=== PATIENT | female | born 1980 | race Caucasian/White ===

== ENCOUNTER → 2020-05-28 09:42 | Outpatient (CLI) | payer OTHER, SELFPAY ==
--- NOTE | ~2020-05-28 | MR_ITS ---
EXAMINATION: MR lumbar spine wo con EXAM DATE: 05/28/2020 10:27 INDICATION: Low back pain low back pain . TECHNIQUE: Multi-sequential, multiplanar MR images of the lumbar spine were obtained without contrast . Sagittal T1, T2, T2 fat saturation images. Axial T2 weighted images. There is no prior study for comparison. FINDINGS: The conus medullaris terminates at the L1/2 level and has normal signal intensity and morph ology. Moderate disc disease at L5-S1 with 3 mm retrolisthesis. The vertebral bodies are otherwise a ligned. The vertebral body and disc heights are otherwise well maintained. There are scattered focal signal abnormalities consistent with hemangiomata, otherwise without focal suspicious marrow signal a bnormalities. Paraspinal soft tissue is unremarkable. Level by level evaluation: T12-L1: Disc does not extend beyond the endplate margin. Facet arthropathy: Mild bilateral. Neural foraminal stenosis: No stenosis. Central canal stenosis: No stenosis. L1-L2: Disc does not extend beyond the endplate margin. Facet arthropathy: Mild bilateral. Neural foraminal stenosis: No stenosis. Central canal stenosis: No stenosis. L2-L3: Disc does not extend beyond the endplate margin. Facet arthropathy: Mild bilateral. Neural foraminal stenosis: No stenosis. Central canal stenosis: No stenosis. L3-L4: Disc does not extend beyond the endplate margin. Facet arthropathy: Mild bilateral. Neural foraminal stenosis: No stenosis. Central canal stenosis: No stenosis. L4-L5: There is a minimal diffuse disc bulge. Facet arthropathy: Mild bilateral. Neural foraminal stenosis: Mild left. Central canal stenosis: No stenosis. L5-S1: There is a mild diffuse disc bulge. Facet arthropathy: Mild bilateral. Neural foraminal stenosis: Mild to moderate bilateral. Central canal stenosis: Mild. IMPRESSION: 1. Mild lumbar spondylosis. Reviewed, dictated and finalized at location B. TY MANAGER IMPRESSION: 1. Mild lumbar spondylosis.
== END ==
PROVIDERS: PCP Nurse Practitioner Family; Visit Provider Nurse Practitioner Family
DX: M54.5 Low back pain (principal); M47.816 Spondylosis without myelopathy or radiculopathy, lumbar region
CPT/HCPCS: 72148

== ENCOUNTER → 2021-02-20 06:54 | Outpatient (CLI) | payer BC, SELFPAY ==
--- NOTE | ~2021-02-20 | XR_ITS ---
EXAMINATION: XR cervical spine 4-5V EXAM DATE: 02/20/2021 07:19 INDICATION: Neck and mid back pain. States history of falling off swing, giving head. Neck and back p ain since then. Initial encounter. TECHNIQUE: Frontal, lateral extension, lateral flexion, lateral neutral standing projections obtaine d. Open-mouth odontoid projection. There is no prior study for comparison. FINDINGS: There is no evidence of acute cervical fracture. The odontoid process is intact. Pre-dens space is normal. Prevertebral soft tissue is normal. There are no soft tissue abnormalities identi fied. Vertebral body and disc heights are well-maintained. Vertebral bodies are aligned on all the lateral projections, no widening of the disc spaces. IMPRESSION: No acute cervical findings. Reviewed, dictated and finalized at location B. IMPRESSION: No acute cervical findings.
--- NOTE | ~2021-02-20 | XR_ITS ---
EXAMINATION: XR thoracic spine 2V EXAM DATE: 02/20/2021 07:20 INDICATION: Neck and mid back pain. Fall, injury, initial encounter. TECHNIQUE: Frontal and lateral projections of the thoracic spine as well as lateral swimmers projecti on of the upper thoracic spine for interpretation. There is no prior study for comparison. FINDINGS: There are no acute fractures identified. The vertebral bodies are aligned in the AP dimensi on. Vertebral body and disc heights are well-maintained. Paraspinal soft tissue is unremarkable. IMPRESSION: No acute fracture identified. Reviewed, dictated and finalized at location B.
== END ==
PROVIDERS: PCP Nurse Practitioner Family; Visit Provider Chiropractor
DX: M54.2 Cervicalgia (principal); M54.6 Pain in thoracic spine
CPT/HCPCS: 72050; 72070

== ENCOUNTER 2022-06-07 13:44 | Emergency (ER) | payer BC, SELFPAY ==
--- NOTE | ~2022-06-07 | XR_ITS ---
XR chest 2V DATE: 06/07/2022 16:19 INDICATION: Productive cough, shortness of breath TECHNIQUE: 2 views COMPARISON: None FINDINGS: Normal heart size. No hilar or mediastinal enlargement. No pulmonary infiltrate or consolid ation, pleural effusion or pulmonary vascular congestion or pneumothorax. Included skeletal structure s are unremarkable. IMPRESSION: No active cardiopulmonary disease Reviewed, dictated and finalized at location A. GER CLINICAL APPLICATIONS
[2022-06-07 14:14] VITALS: BP 137/68; PULSE 107; RESP 18; TEMP 36.1; O2SAT 98
--- NOTE | 2022-06-07 16:05 | ED.URI ---
HPI - URI/Sore Throat General Chief Complaint: Upper Respiratory Infection Stated Complaint: Sinus,Cough Time Seen by Provider: 06/07/22 16:05 Source: patient Mode of arrival: ambulatory Limitations: no limitations History of Present Illness HPI Narrative: 41-year-old female presents with complaint of cough congestion chest congestion, fatigue, body aches, chills for 5 days. Did a telehealth visit was told she had influenza. Was given Tessalon Perles and Tamiflu. Reports that cough is getting worse. Feels short of breath and wheezy at night. Afebrile. No respiratory distress at this time. Denies nausea vomiting diarrhea. All systems reviewed and negative except as noted above. Related Data Home Medications Medication Instructions Recorded Confirmed benzonatate 100 mg capsule 100 mg PO DIRECTED 06/07/22 06/07/22 buspirone 5 mg tablet 5 mg PO DAILY 06/07/22 06/07/22 estradiol 0.075 mg/24 hr 1 patch transdermal DAILY 06/07/22 06/07/22 semiweekly transdermal patch oseltamivir 75 mg capsule 75 mg PO DIRECTED 06/07/22 06/07/22 phentermine 37.5 mg tablet 37.5 mg PO DIRECTED 06/07/22 06/07/22 sertraline 100 mg tablet 100 mg PO DAILY 06/07/22 06/07/22 Allergies Allergy/AdvReac Type Severity Reaction Status Date / Time No Known Allergies Allergy Verified 06/07/22 16:53 Review of Systems Review of Systems: CONSTITUTIONAL: Denies fever, chills, or sweats. Reports fatigue. EYES: Denies visual changes, redness, or discharge. ENT: Denies rhinorrhea, congestion, sore throat, or otalgia. CARDIOVASCULAR: Denies chest pain, palpitations, or edema. RESPIRATORY: Reports cough and dyspnea at night.. GASTROINTESTINAL: Denies abdominal pain, nausea, vomiting, or diarrhea. GENITOURINARY: Denies dysuria or hematuria. SKIN: Denies rash or itching. MUSCULOSKELETAL: Denies back pain, joint pain . Reports myalgia. NEUROLOGIC: reports headache. Denies numbness, or weakness. PSYCHIATRIC: Denies anxiety or depression. All other systems reviewed are negative, except as documented in HPI. [facility] Comments At time of signature, agree with nursing past medical, surgical, social and family history. There is no relevant family history pertinent to the presenting complaint. Exam Narrative: GENERAL: This is a well-nourished, well-developed patient, in no apparent distress. HEAD: normocephalic, atraumatic. EYES: PERRL. Sclera clear/white. Vision is grossly intact. EARS: External ears normal, auditory canals clear and without drainage, TMs normal without perforation. Hearing grossly intact. NOSE: External nose normal with drainage. THROAT: Mucous membranes moist, posterior pharynx clear. NECK: Neck supple, non-tender without lymphadenopathy, masses or thyromegaly. CARDIOVASCULAR: Regular rate and rhythm without murmurs, gallops, or rubs. RESPIRATORY: Mild expiratory wheeze Bilateral Lower lung godoy. SKIN: warm, Dry, intact with no suspicious lesions or rash, good texture and turgor. NEURO: awake, alert, and oriented to person, place and time. There were no obvious focal neurologic abnormalities. EXTREMITIES: No joint tenderness, effusion, or edema noted. No calf tenderness. Negative Homans sign bilaterally. BACK: Nontender without deformity. No CVA tenderness. Course Course Level of Care: Express Care Visit Vital Signs Vital signs: Vital Signs Temperature 36.1 C L 06/07/22 14:14 Pulse Rate 107 H 06/07/22 14:14 Respiratory Rate 18 06/07/22 14:14 Blood Pressure 137/68 06/07/22 14:14 Pulse Oximetry 98 06/07/22 14:14 Oxygen Delivery Room Air 06/07/22 14:14 Temperature 36.1 C L 06/07/22 14:14 Pulse Rate 107 H 06/07/22 14:14 Respiratory Rate 18 06/07/22 14:14 Blood Pressure 137/68 06/07/22 14:14 Pulse Oximetry 98 06/07/22 14:14 Oxygen Delivery Room Air 06/07/22 14:14 reviewed MDM - URI/Sore Throat MDM Narrative Medical decision making narrative: negative influenza. N
== END 2022-06-07 17:00 | disposition home or self-care (01) ==
PROVIDERS: Emergency Provider Nurse Practitioner Family; PCP Nurse Practitioner Family
DX: J06.9 Acute upper respiratory infection, unspecified (principal)
CPT/HCPCS: 71046; 87804; 99213; G0463

== ENCOUNTER → 2022-10-06 07:53 | Outpatient (CLI) | payer BC, SELFPAY ==
--- NOTE | ~2022-10-06 | US_ITS ---
Limited Abdominal Sonogram: Real-time sonographic imaging of the right upper quadrant was performed. Clinical History: Abnormal liver enzymes Findings: The liver appears normal with no evidence of mass lesion or bile duct dilatation. Main por wally vein demonstrates normal direction of flow. The gallbladder is well distended, and appears normal with no evidence of gallstone or wall thickening. The common bile duct measures 3 mm. The visualize d pancreas, aorta, and IVC are unremarkable. Right kidney measures 12 point centimeters in length, wi thout evidence for hydronephrosis. Impression: No significant abnormality seen. Reviewed, dictated and finalized at location . Impression: No significant abnormality seen.
== END ==
PROVIDERS: PCP Nurse Practitioner Family; Visit Provider Psychiatry & Neurology Psychiatry
DX: R74.01 Elevation of levels of liver transaminase levels (principal)
CPT/HCPCS: 76705

== ENCOUNTER 2025-04-23 01:16 | Day surgery (SDC) | payer BC, SELFPAY ==
[2025-04-06 10:56] VITALS: BMI 37.3
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
--- OUTSIDE RECORDS SUMMARY | 2025-04-23 01:20 | XMS_ITS | Clinical Summary ---
Author Organization [facility] Address [address] [place] [address] Phone Care Team Providers Care Staff Physical Therapist Name Role Phone Nathan Fagan MD Primary Care Provider Allergies No known active allergies Medications gabapentin (NEURONTIN) 100 mg capsuleIndicati ons:anxiety Take 1 Capsule (100 mg) by mouth 3 times daily. 90 Capsule 0 09/19/2015 Active QUEtiapine (SEROQUEL) 50 mg tabletIndicatio ns:depression Take 1 Tablet (50 mg) by mouth daily at bedtime. 30 Tablet 0 09/19/2015 Active FLUoxetine (PROZAC) 10 mg capsuleIndicati ons:depression Take 1 Capsule (10 mg) by mouth daily. 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 Gender Identity Not on file Sexual Orientation Not on file Last Filed Vital Signs Vital Sign Reading Time Taken Comments Blood Pressure 115/67 09/20/2015 7:57 AM MELTER SUPERVISOR [employer] FURNACE Pulse 82 09/20/2015 7:57 AM MELTER SUPERVISOR [employer]GEN FURNACE Temperature 36.9 C (98.5 F) 09/20/2015 7:57 AM MELTER SUPERVISOR [employer]GEN FURNACE Respiratory Rate 18 09/20/2015 7:57 AM MELTER SUPERVISOR [employer]GEN FURNACE Oxygen Saturation 99% 09/20/2015 7:57 AM MELTER SUPERVISOR [employer] FURNACE Inhaled Oxygen Concentration - - Weight 103.9 kg (229 lb) 09/16/2015 8:00 PM MELTER SUPERVISOR [employer]NACE Height 167.6 cm (5' 6) 09/16/2015 8:00 PM MELTER SUPERVISOR [employer]URNACE Body Mass Index 36.96 09/16/2015 8:00 PM MELTER SUPERVISOR [employer]URNACE Plan of Treatment Health Maintenance Due Date Last Done Comments DTAP/TDAP/TD VACCINES (1 - Tdap) 2001 HEPATITIS B VACCINES (1 of 3 - 19+ 3-dose series) 07/2001 HPV/Cotest (21-29) 2003 HPV VACCINES (1 - 3-dose SCDM series) 2009 CERVICAL CANCER SCREENING 2012 HPV/Cotest (30-65) 2012 PAP SMEAR 2012 BREAST CANCER SCREENING 2022 INFLUENZA VACCINE (#1) 2025 Insurance Mi-Pay BLUE ACCESS/TRUE BLUE PPO [employer] BLUE ACCESS/TRUE BLUE PPO Advance Directives For more information, please contact: [phone] * Full Code (Latest Code Status on File) Date Activated Date Inactivated Comments 09/16/2015 8:55 PM 09/20/2015 3:52 PM Care Teams Staff Physical Therapist Relationship Specialty Start Date End Date Nathan Fagan MD PCP - General Internal Medicine 09/16/15
--- OUTSIDE RECORDS SUMMARY | 2025-04-23 01:21 | XMS_ITS | Clinical Summary ---
Author Organization [facility] Address [address] [place] [address] Care Team Providers Care Traffic Chief Name Role Phone Nathan Fagan MD Primary Care Provider [phone] Allergies No known active allergies Medications multivitamin tablet tablet take 1 tablet by oral route every day with food 0 0 06/01/2016 Active escitalopram (LEXAPRO) 10 mg tablet Take 1 tablet (10 mg total) by mouth daily. 30 tablet 3 07/15/2017 Active Active Problems Problem Noted Date Diagnosed Date Bipolar affect, depressed 06/04/2017 Assessment & Plan (06/04/2017 8:54 AM SURFBOARD MAKER): Currently stable and would recommend following up the psychiatrist for management as she directs. Healthcare maintenance 06/04/2017 Assessment & Plan (06/04/2017 8:54 AM SURFBOARD MAKER): Flu shot each April. Tetanus booster every 10 years. She is to see her shredding machine knife changer for breast exam and Pap smear. We will see her back in 12 months for full physical and fasting lab sooner if needed. Tobacco dependence syndrome 12/09/2013 Overview (10/30/2016): TOBACCO USE DISORDER Anxiety state 12/09/2013 Overview (10/30/2016): ANXIETY STATE NOS Vitamin D deficiency 01/18/2013 Overview (10/30/2016): Vitamin D deficiency Assessment & Plan (06/04/2017 8:53 AM SURFBOARD MAKER): Continue current supplementation and check level in 1 year. Resolved Problems Problem Noted Date Diagnosed Date Resolved Date Major depressive disorder, r ecurrent, severe without psychotic features 09/17/2015 06/04/2017 Depression 12/09/2013 06/04/2017 Overview (10/30/2016): DEPRESSIVE DISORDER NEC Immunizations Immunization Administration Dates Next Due Influenza, Quadrivalent, Spl it, Preservative Free, Intradermal 06/01/2016,05/27/2015 Influenza, Quadrivalent, Spl it, Preservative Free, Intramuscular 06/04/2017 Influenza, Trivalent, IM (MDV) 04/25/2013,2011,06/07/2008 TD Preservative Free 05/27/2015,06/07/2005 Surgical History Surgery Date Site/Laterality Comments OTHER SURGICAL [facility] OTHER SURGICAL HISTORY 1. gatekeeper: [facility] Medical History Medical History Date Comments Hx Other Medical 2009 Hx Other Medical 1. gatekeeper Hx Other Medical depression, anx iety, suicidal tendency Suicide (HCC) 08/2016 [facility] Family History Medical History Relation Name Comments Hypertension Father Hypertension; Stroke Father Stroke; Cancer Paternal Grandmother Cancer, unknown; Other Neg Hx No history of C ancer, colon; Relation Name Status Comments Father Paternal Grandmother Social History Tobacco Use Types Packs/Day Years Used Date Smoking Tobacco: Former Cigarettes 0.3 10 1 08/04/1996 - 06/04/2007 Smokeless Tobacco: Never Comments:Smoking History Pac ks/day: 0.25 Packs Alcohol Use Standard Drinks/Week Comments No 0 (1 standard drink = 0.6 oz pur e alcohol) Comments Unknown Sex and Gender Information Value Date Recorded Sex Assigned at Not on file Legal Sex Female 12:49 AM SURFBOARD MAKER Gender Identity Not on file Sexual Orientation Not on file Obstetrics History Last Filed Vital Signs Vital Sign Reading Time Taken Comments Blood Pressure 124/84 12/26/2019 8:54 AM CDT Pulse 72 12/26/2019 8:54 AM CDT Temperature 36.7 C (98.1 F) 12/26/2019 8:54 AM CDT Respiratory Rate 16 07/15/2017 2:01 PM SURFBOARD MAKER Oxygen Saturation 97% 12/26/2019 8:54 AM CDT Inhaled Oxygen Concentration - - Weight 103.3 kg (227 lb 11.8 oz) 12/26/2019 8:54 AM CDT Height 167.6 cm (5' 6) 12/26/2019 8:54 AM CDT Body Mass Index 36.76 12/26/2019 8:54 AM CDT Plan of Treatment Not on file Insurance [employer] OPEN ACCESS Care Teams Traffic Chief Relationship Specialty Start Date End Date Nathan Fagan MD PCP - General 09/25/15
--- OUTSIDE RECORDS SUMMARY | 2025-04-23 01:21 | XMS_ITS | Clinical Summary ---
Author Organization [facility] Care Team Providers Care County Assessor Name Role Phone Unavailable Primary Care Provider Unavailabl e Social History Tobacco Use Types Packs/Day Years Used Date Smoking Tobacco: Never Assessed Comments Unknown Sex and Gender Information Value Date Recorded Sex Assigned at Not on file Legal Sex Female 12:19 AM CDT Gender Identity Not on file Sexual Orientation Not on file Plan of Treatment Health Maintenance Due Date Last Done Comments Hepatitis C Virus (HCV) Screening 1982 TdaP Immunization 1982 Hepatitis B Immunization (1 of 3 - 19+ 3-dose series) 2001 Pap Smear 2003 Human Papillomavirus (HPV) Immunization (1 - 3-dose SCDM series) 2009 Cervical Cancer Screening (CCS) 2012 HPV/Cotest 2012 Influenza Immunization (#1) 03/26/202503/26, 05/24/2019 SARS-COV-2 Immunization ( season) 2025 08/22/2021, 11/17/2020, 10/26/2020 Respiratory Syncytial Virus (RSV) Immunization (Adult) (1 - 1-dose 75+ series) 2057 Meningococcal Immunization (ACWY) Aged Out No longer eligible b ased on patient's age to complete this topic Pneumococcal Immunization Combined Aged Out No longer eligible b ased on patient's age to complete this topic Rotavirus Immunization Aged Out No lo nger eligible based on patient's age to complete this topic
[2025-04-23 12:54] VITALS: BMI 34.3
[2025-04-23 12:56] VITALS: BP 117/79; PULSE 89; RESP 16; TEMP 36.6; O2SAT 100
[2025-04-23] MEDS: LACTATED RINGERS 1,000 ML 150 ML IV CONT (13:04)
--- NOTE | 2025-04-23 13:05 | WPDANESEPPF ---
Anes - Initial Pre Proc Eval Procedure: Operation Date: 04/23/25 14:00 Proposed Procedures p Diagnostic Colonoscopy - Ignacio Jefferson MD Date/Time: 04/23/25 13:05 Surgeon: Ignacio Jefferson MD Pre Op Diagnosis: Abnormal weight loss Patient Data Age: 44 Gender: F Height: 1.68 m Weight: 96.6 kg Last Vital Signs Temp 97.8 F 04/23/25 12:56 Pulse 89 04/23/25 12:56 Resp 16 04/23/25 12:56 BP 117/79 04/23/25 12:56 Pulse Ox 100 04/23/25 12:56 O2 Del Method Room Air 04/23/25 12:56 Allergies Allergy/AdvReac Type Severity Reaction Status Date / Time No Known Allergies Allergy Verified 04/23/25 12:53 Home Medications ?Medication ?Instructions ?Recorded ?Confirmed ?Type sertraline 100 mg tablet 100 mg PO DAILY 06/07/22 04/23/25 History aripiprazole 2 mg tablet 2 mg PO DAILY 11/18/23 04/23/25 History bupropion HCl 300 mg 24 hr tablet, 300 mg PO QAM 11/18/23 04/23/25 History extended release buspirone 5 mg tablet 5 mg PO BID 11/18/23 04/23/25 History ashwagandha extract 120 mg capsule 1 mg PO DAILY 03/07/25 04/23/25 History cholecalciferol (vitamin D3) 10 10 mcg PO DAILY 03/07/25 04/23/25 History mcg (400 unit) tablet multivitamin (Daily Multi-Vitamin 1 tablet PO DAILY 03/07/25 04/23/25 History tablet) Patient hx anesthesia problems: none Family hx anesthesia problems: none Results Review: All pre-operative results and documents have been reviewed as part of the pre-operative evaluation. [facility] Past Medical History Medical History Anxiety Surgical History Surgical History H/O: hysterectomy Family History Family History Father Alcoholism Hypertension Cerebrovascular accident Mother Alcoholism Grandparent Breast cancer Ovarian cancer Social History Social History Social History: 02/28/25 very confident with medical forms Years smoked: 1 Smoking status: Never smoker Tobacco type: e-cigarettes/vaping Alcohol intake: current Drinks per week: 2 Substance use: current Substance use type: marijuana Lack of Transportation: No Lack of Food: Never True Current Housing: I Have Housing Concerned About Future Housing: No Difficulty Paying Gas/Electric Bills: No Difficulty Paying for Meds: No Currently Unemployed: No Education: Bachelor's Degree Difficulty w/ Childcare or Family Care: No Living arrangements: with family Occupation/Education: occupation 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 BMI 34, pt vapes daily, did this am prior to arrival. Informed Consent: The patient's anesthetic plan and its attendant risks and benefits were discussed with the patient/family/POA. Questions were solicited and answers provided to the satisfaction of the patient/family/POA.
--- NOTE | 2025-04-23 13:44 | PM.HPGS ---
History of Present Illness History of Present Illness Consent: Risks, benefits, and alternatives have been discussed and questions answered. Patient agrees to proceed with procedure. Chief complaint: Abnormal weight loss Narrative: Aminta Kurtz is a 44 year old female here for first colonoscopy, noted weight loss Review of Systems Review of Systems: All systems reviewed & are unremarkable except as noted in HPI and below PMFSH Past Medical History Medical History (Updated 04/23/25 @ 13:44 by Ignacio Jefferson MD) Weight loss Anxiety Surgical History Surgical History H/O: hysterectomy Family History Family History Father Alcoholism Hypertension Cerebrovascular accident Mother Alcoholism Grandparent Breast cancer Ovarian cancer Social History Social History Social History: 02/28/25 very confident with medical forms Years smoked: 1 Smoking status: Never smoker Tobacco type: e-cigarettes/vaping Alcohol intake: current Drinks per week: 2 Substance use: current Substance use type: marijuana Lack of Transportation: No Lack of Food: Never True Current Housing: I Have Housing Concerned About Future Housing: No Difficulty Paying Gas/Electric Bills: No Difficulty Paying for Meds: No Currently Unemployed: No Education: Bachelor's Degree Difficulty w/ Childcare or Family Care: No Living arrangements: with family Occupation/Education: occupation 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 [employer] Health care concerns: No Meds Home Medications and Allergies Home Medications ?Medication ?Instructions ?Recorded ?Confirmed ?Type sertraline 100 mg tablet 100 mg PO DAILY 06/07/22 04/23/25 History aripiprazole 2 mg tablet 2 mg PO DAILY 11/18/23 04/23/25 History bupropion HCl 300 mg 24 hr tablet, 300 mg PO QAM 11/18/23 04/23/25 History extended release buspirone 5 mg tablet 5 mg PO BID 11/18/23 04/23/25 History ashwagandha extract 120 mg capsule 1 mg PO DAILY 03/07/25 04/23/25 History cholecalciferol (vitamin D3) 10 10 mcg PO DAILY 03/07/25 04/23/25 History mcg (400 unit) tablet multivitamin (Daily Multi-Vitamin 1 tablet PO DAILY 03/07/25 04/23/25 History tablet) Allergies Allergy/AdvReac Type Severity Reaction Status Date / Time No Known Allergies Allergy Verified 04/23/25 12:53 Vital Signs Vital Signs - 24 hr 04/23/25 12:56 Temperature 97.8 F Pulse Rate 89 Respiratory Rate 16 Blood Pressure 117/79 Pulse Oximetry 100 Oxygen Delivery Room Air Exam Const: General: comfortable and no acute distress HENMT: Face/Nose/Sinus: Normal nares present Eyes: General: appearance normal, both eyes and all related structures Resp: Auscultation: clear to auscultation bilaterally Cardio: Rate: regular rate Rhythm: regular rhythm GI: Inspection: non-distended GI Palp: Yes Soft to palpation Skin: General skin exam: normal color Extrem: General: normal to inspection Psych: Mental Status: mental status grossly normal Assessment and Plan Assessment and plan (1) Weight loss: Code(s): R63.4 - Abnormal weight loss Status: Acute Assessment and Plan: colonoscopy
[2025-04-23 13:55] VITALS: BP 109/65; PULSE 72; RESP 20; O2SAT 100
[2025-04-23 14:05] VITALS: BP 108/73; PULSE 71; RESP 20; O2SAT 100
[2025-04-23 14:15] VITALS: BP 113/75; PULSE 72; RESP 21; O2SAT 100
== END 2025-04-23 14:22 | disposition home or self-care (01) ==
PROVIDERS: PCP Nurse Practitioner Family; Referring Provider Nurse Practitioner Family; Visit Provider Internal Medicine Gastroenterology
PROC: 0DJD8ZZ Inspection of Lower Intestinal Tract, Via Natural or Artificial Opening Endoscopic (ICD-10-PCS; CPT 45378; principal; 2025-04-23 14:00)
DX: R63.4 Abnormal weight loss (principal); F41.9 Anxiety disorder, unspecified; F17.290 Nicotine dependence, other tobacco product, uncomplicated; F12.90 Cannabis use, unspecified, uncomplicated; E66.9 Obesity, unspecified; Z68.34 Body mass index [BMI] 34.0-34.9, adult; Z98.890 Other specified postprocedural states; Z80.3 Family history of malignant neoplasm of breast; Z80.41 Family history of malignant neoplasm of ovary
CPT/HCPCS: 45378; J2704; J7120